=== PATIENT | female | born 1940 | race Caucasian/White ===

== ENCOUNTER 2017-09-01 08:43 | Outpatient (CLI) | payer MEDICARE, MEDICAID ==
--- NOTE | 2017-09-01 12:34 | CT ---
POST CONTRAST SOFT TISSUE NECK CT: HISTORY: Throat spasm, intermittent. Pain. COMPARISON: None. TECHNIQUE: A post contrast soft tissue neck CT is performed in the axial plane. Reformatted images are submitt ed for interpretation. FINDINGS: The visualized brain parenchyma is unremarkable. A partially empty sella is noted. There is adequa te aeration of the visualized sinuses and mastoid air cells. The aerodigestive tract is patent. No mucosal abnormality. Midline fatty raphe of the tongue is pr eserved. The epiglottis has a normal caliber. No prevertebral soft tissue swelling. Symmetric attenuation of the sternocleidomastoid muscle. Symmetric attenuation of the parotid gland s and submandibular gland. There is no evidence of lymphadenopathy by size criteria. The upper mediastinum and the lung apices are unremarkable. Cervical spine vertebral body height is maintained. No fracture. There are varying degrees of cent ral canal stenosis and foraminal narrowing on the basis of degenerative change. Atherosclerosis involving both carotid bifurcations and the proximal internal carotid arteries. No high grade stenosis. Evaluation is limited by technique. IMPRESSION: No acute abnormality in the soft tissues of the neck. No masses or lymphadenopathy. POS: [facility]
[2017-09-01] MEDS ORDERED: Iopamidol 370 76% 100 ML VIAL ONE (13:28)
== END 2017-09-01 08:44 | disposition home or self-care (01) ==
LOC: CT 08:43
PROVIDERS: ATTEND Internal Medicine
DX: M54.2 Cervicalgia (principal)
CPT/HCPCS: 70491

== ENCOUNTER 2017-12-08 10:14 | Outpatient (CLI) | payer MEDICARE, MEDICAID ==
--- NOTE | 2017-12-08 12:26 | RAD ---
SMALL BOWEL STUDY: HISTORY: Epigastric pain. COMPARISON: None. FINDINGS: Initial supervisor tunnel heading abdomen radiograph demonstrates a nonspecific bowel gas pattern. Phleboliths in the pe lvis are noted. The patient was administered thin barium, which passes rather quickly through the small bowel and opa cifies the colon as early as 15 minutes. Multiple normal caliber small bowel loops are noted. Grade d spot compression images demonstrate appropriate small bowel loop separation. The ileocecal junctio n is unremarkable. The opacified right hemicolon is also grossly unremarkable. The 30 minutes images demonstrate contrast now opacifying the splenic flexure. IMPRESSION: Rapid transit of contrast through normal caliber small bowel loops. No obvious mucosal abnormality. POS: [facility]
== END 2017-12-08 10:15 | disposition home or self-care (01) ==
LOC: RAD 10:14
PROVIDERS: ATTEND Internal Medicine
DX: R10.13 Epigastric pain (principal)
CPT/HCPCS: 74250

== ENCOUNTER 2018-04-13 08:05 | Outpatient (CLI) | payer MEDICARE, MEDICAID ==
--- NOTE | 2018-04-13 11:08 | CT ---
CT ABDOMEN AND PELVIS WITH IV CONTRAST: TECHNIQUE: Multiple axial tomograms were obtained through the abdomen and pelvis with IV enhancement. Oral cont rast was given. INDICATION: Generalized abdominal pain. COMPARISON: Comparison is made to CT abdomen and pelvis 05/23/17. Lung bases clear. The liver, spleen, and pancreas are unremarkable. Adrenal glands and kidneys unremarkable. No hydro nephrosis or urinary tract calculus identified. Urinary bladder unremarkable. Small bowel loops appear normal caliber. There is contrast throughout the colon. Diverticulosis of the left colon and sigmoid. The appendix is not identified. Aorta is calcified but normal caliber. No adenopathy seen. The patient appears to be post hysterectomy. Osseous structures unremarkable. IMPRESSION: No evidence of acute process. POS: [facility]
--- NOTE | 2018-04-13 12:06 | RAD ---
BARIUM SWALLOW ESOPHAGRAM: HISTORY: Dysphagia. Difficulty swallowing. Symptoms occur in the thoracic and cervical esophagus. COMPARISON: None. EXPOSURE: 1.9 minutes. 8.205 uGy*^cm2. FINDINGS: ONE VIEW CHEST: Normal cardiac silhouette. Pulmonary vessels and hilum are normal. Costophrenic angles are clear. No consolidation or mass. No pneumothorax or osseous abnormalities. The cervical and thoracic esophagus have an overall normal course and caliber. There is mass effect upon the posterior cervical esophagus at the C5 level due to prominent cricopharyngeus. There is als o a right lateral esophageal diverticulum at approximately the C2-C3 level. There is evidence of a small hiatal hernia. No reflux during intermittent fluoroscopy. The visualiz ed thoracic esophageal mucosa has a normal appearance. The patient was administered a 13 mm table which passed without difficulty. IMPRESSION: 1. Prominent cricopharyngeus. 2. Right lateral esophageal diverticulum at the level of C2-C3 vertebral bodies. 3. Small hiatal hernia without evidence of reflux during intermittent fluoroscopy. POS: [facility]
[2018-04-13] MEDS ORDERED: Iopamidol 370 76% 100 ML VIAL ONE (13:33)
== END 2018-04-13 08:06 | disposition home or self-care (01) ==
LOC: CT 08:05
PROVIDERS: ATTEND Internal Medicine
DX: K44.9 Diaphragmatic hernia without obstruction or gangrene (principal); K51.80 Other ulcerative colitis without complications; Q39.6 Congenital diverticulum of esophagus
CPT/HCPCS: 74177; 74220; 82565

== ENCOUNTER 2018-08-10 07:21 | Outpatient (CLI) | payer MEDICARE, MEDICAID ==
--- NOTE | 2018-08-10 11:05 | NM ---
HEPATOBILIARY SCAN: Date: 08/10/18 HISTORY: Nausea and vomiting, unspecified. RADIOPHARMACEUTICAL: 5.4 mCi technetium-99m mebrofenin injected intravenously. FINDINGS: There is good tracer extraction by the liver with prompt excretion of the biliary tract and small bow el loops. There is no filling of the gallbladder at 1 hour. 2 mg of IV morphine were injected and add itional imaging for 30 minutes was performed. No filling of the gallbladder is seen on the morphine-a ugmented imaging. IMPRESSION: Findings are indicative of cystic duct obstruction and suspicious for acute cholecystitis. Discussed over the telephone with Dr. Michael Wilcox at 1057 hours. CODE CR. POS: [facility]
== END 2018-08-10 07:22 | disposition home or self-care (01) ==
LOC: NM 07:21
PROVIDERS: ATTEND Internal Medicine
DX: R11.2 Nausea with vomiting, unspecified (principal); R14.0 Abdominal distension (gaseous)
CPT/HCPCS: 78227; A9537; J2270

== ENCOUNTER 2018-08-18 15:10 | Outpatient (CLI) | payer MEDICARE, MEDICAID ==
--- NOTE | 2018-08-18 17:24 | BD ---
BONE DENSITOMETRY USING DEXA: Date: 08/18/18 HISTORY: Postmenopausal screening for osteoporosis. FINDINGS: Lumbar Spine: BMD (g/cm2) L1 1.184 T-Score: 1.8 Z-Score: 4.1 L2 1.260 T-Score: 2.1 Z-Score: 4.7 L3 1.317 T-Score: 2.1 Z-Score: 4.8 L4 1.223 T-Score: 1.5 Z-Score: 4.3 L1-L4 1.249 T-Score: 1.8 Z-Score: 4.4 Femoral Neck: 0.804 T-Score: -0.4 Z-Score: 1.8 Total Femur: 0.926 T-Score: -0.1 Z-Score: 1.9 The 10 year fracture risk for a major osteoporotic fracture is 14% and for a hip fracture is 5.5%. IMPRESSION: No evidence of osteopenia/osteoporosis. POS: [facility]
== END 2018-08-18 15:11 | disposition home or self-care (01) ==
LOC: BICMAMMO 15:10
PROVIDERS: ATTEND Internal Medicine
DX: Z12.31 Encounter for screening mammogram for malignant neoplasm of breast (principal); Z78.0 Asymptomatic menopausal state
CPT/HCPCS: 77063; 77067; 77080

== ENCOUNTER 2018-08-26 11:43 | Outpatient (CLI) | payer MEDICARE, MEDICAID ==
--- NOTE | 2018-08-26 14:54 | ULT ---
ABDOMINAL ULTRASOUND WITH LIMITED BLADDER ULTRASOUND: HISTORY: Renal insufficiency and abdominal pain. COMPARISON: None. TECHNIQUE: Multiplanar barber-scale and color Doppler images were obtained in a complete abdominal ultrasound. Im ages were also taken of the urinary bladder. FINDINGS: The liver demonstrates increased echogenicity without focal lesions or intrahepatic ductal dilatation . There is echogenicity material in the gallbladder. The majority of this material does not demonst rate shadowing, but there is an area of shadowing, suggesting a gallstone is present within sludge. There is no gallbladder wall thickening or pericholecystic fluid. The common bile duct is at the upp er limits of normal, measuring 7 mm. The aorta and inferior vena cava are normal in caliber. The visualized portions of the pancreas are unremarkable. The spleen is normal in echogenicity without focal lesions and measures 9 cm in length . The right kidney is normal in echogenicity without hydronephrosis or calculus and measures 9.5 cm in length. There is a 6 mm echogenic focus in the left kidney, which could represent a nonobstructing ca lcification. No hydronephrosis is seen on the left, and the left kidney measures 10.2 cm in length. Limited visualization of the urinary bladder shows no focal bladder abnormality. Bladder volume is 1 04 mL. IMPRESSION: 1. Fatty liver. 2. Gallbladder sludge and likely gallstone. 3. Possible nonobstructing left renal calcification. POS: [facility]
== END 2018-08-26 11:44 | disposition home or self-care (01) ==
LOC: BICULT 11:43
PROVIDERS: ATTEND Surgery
DX: N28.9 Disorder of kidney and ureter, unspecified (principal); R10.9 Unspecified abdominal pain; K76.0 Fatty (change of) liver, not elsewhere classified; K82.8 Other specified diseases of gallbladder
CPT/HCPCS: 76700; 76856

== ENCOUNTER 2018-10-12 06:26 | Day surgery (SDC) | payer MEDICARE, MEDICAID ==
[2018-10-11 14:21] VITALS: BMI 23.0
[2018-10-12] MEDS ORDERED: Bupivacaine/Epinephrine 0.25% 30 ML VIAL ONE (06:32)
[2018-10-12] MEDS ORDERED: Iothalamate Meglumine 60% 50 ML VIAL FS ONE (06:36)
[2018-10-12] MEDS ORDERED: EPINEPHrine 1 MG/ML AMP ONE (06:36)
[2018-10-12] MEDS ORDERED: Famotidine/PF 20 mg/2ml Vial ONE (07:05)
[2018-10-12] MEDS ORDERED: Fentanyl 100 MCG/2 ML VIAL ONE (07:05)
[2018-10-12] MEDS ORDERED: CEFAZOLIN 2 GM/50 ML BAG ONE (07:13)
[2018-10-12 07:17] LABS: #Eosinphils 0.5 thou/uL (0.0-0.7); #Lymphocytes 3.2 thou/uL (1.20-3.40); #Monocytes 0.7 thou/uL (0.11-0.59); #Neutrophils 2.9 thou/uL (1.40-6.50); %Basophils 0.6 % (0.0-1.0); %Eosinophils 7.1 % (0.0-10.0); %Lymphocytes 43.4 % (21.0-51.0); %Monocytes 9.2 % (0.0-10.0); %Neutrophils 39.7 % (42.0-75.0); Hemoglobin 12.8 g/dL (12.0-16.0); Mean Corpuscular HGB CONC 35.2 g/dL (32.0-36.0); Mean Corpuscular Hemoglobin 33.3 pg (27.0-31.0); Mean Corpuscular Volume 94.7 fL (78.0-98.0); Mean Platelet Volume 6.5 fL (7.4-10.4); Platelet Count 257 thou/uL (130-400); RBC Distribution Width 12.4 % (11.5-14.5); Red Blood Cell (RBC) Count 3.85 mill/uL (4.20-5.40); White Blood Cell (WBC) Count 7.4 thou/uL (4.8-10.8)
[2018-10-12 07:31] LABS: ALT (SGPT) 29 U/L (8-55); AST (SGOT) 24 U/L (5-34); Albumin 4.2 g/dL (3.4-4.8); Alkaline Phosphatase 106 U/L (40-150); Anion Gap 12 mmol/L (10-20); BUN (Urea Nitrogen) 15 mg/dL (9.8-20.1); Bilirubin, Total 0.5 mg/dL (0.2-1.2); Calc. Creatinine Clearance 54 mL/min (70-130); Calcium 9.2 mg/dL (7.8-10.44); Carbon Dioxide 28 mmol/L (23-31); Chloride 101 mmol/L (98-107); Estimated GFR-MDRD 66; Globulin 3.1 g/dL (2.4-3.5); Glucose 120 mg/dL (83-110); Potassium 3.6 mmol/L (3.5-5.1); Protein, Total 7.3 g/dL (6.0-8.3); Sodium 137 mmol/L (136-145)
[2018-10-12] MEDS ORDERED: Ketorolac Tromethamine 30 MG/ML VIAL ONE (09:37)
[2018-10-12] MEDS ORDERED: Dexamethasone 20 MG/5 ML VIAL ONE (09:37)
[2018-10-12] MEDS ORDERED: Ondansetron PF 4 MG/2 ML Vial ONE (09:37)
[2018-10-12] MEDS ORDERED: Glycopyrrolate 0.2 MG/ML 5 ML SYRINGE ONE (09:37)
[2018-10-12] MEDS ORDERED: ePHEDrine/0.9% NaCl/PF SYRINGE 50 mg/10 ml ONE (09:37)
[2018-10-12] MEDS ORDERED: PROPOFOL 200 MG/20 ML VIAL ONE (09:37)
[2018-10-12] MEDS ORDERED: Lidocaine 1% PF 5 ML VIAL ONE (09:37)
--- NOTE | 2018-10-12 09:46 | RAD ---
OPERATIVE CHOLANGIOGRAM: History: Intraoperative film. FINDINGS: Two C-arm films were preserved for interpretation. These show filling of the common bile duct without evidence of any filling defects. There is emptying into the duodenum. IMPRESSION: Unremarkable operative cholangiogram. POS: [facility]
[2018-10-12] MEDS ORDERED: diphenhydrAMINE 50 MG/ML VIAL ONE (11:47)
[2018-10-12] MEDS ORDERED: traMADol HCl 50 MG TAB ONE (12:07)
--- NOTE | 2018-10-12 20:09 | EKG ---
Test Reason : PREOP Blood Pressure : / mmHG Vent. Rate : 063 BPM Atrial Rate : 063 BPM P-R Int : 148 ms QRS Dur : 080 ms QT Int : 444 ms P-R-T Axes : 059 013 056 degrees QTc Int : 454 ms Normal sinus rhythm Normal ECG No previous ECGs available Confirmed by DR. Sav JONES MD ([id number]) on 10/12/2018 8:08:53 PM Referred By: DOLLY Confirmed By:DR. Sav JONES MD
--- NOTE | 2018-10-14 08:09 | OP ---
DATE OF PROCEDURE: 10/12/2018 PREOPERATIVE DIAGNOSES: 1. Dysphagia. 2. Zenker diverticulum. POSTOPERATIVE DIAGNOSIS: Dysphagia. ESTIMATED BLOOD LOSS: None. COMPLICATIONS: None. ANESTHESIA: GETA. PROCEDURES PERFORMED: 1. Direct laryngoscopy. 2. Rigid esophagoscopy. DESCRIPTION OF PROCEDURE: The patient was taken to the operating room, placed supine on the table. General endotracheal anesthesia was obtained by the Anesthesia staff. Tube was secured in the left lower lip. The head of the bed was turned 90 degrees, shoulder roll was placed. Following this, using the Dedo laryngoscope, the mucosa of the upper airway was examined. The oropharyngeal mucosa and hypopharyngeal mucosa were noted to be within normal limits. Bilateral vocal cords were intact. Pyriform sinuses all within normal limits. Following this, laryngoscope was then introduced into the posterior cricoid area and was expanded. There was no significant pharyngeal muscle bar noted in the posterior or lateral areas. Following this, a rigid endoscopy was performed showing no evidence of a pharyngeal or esophageal bar. There was noted to be excessive amounts of redundant tissue in the upper esophageal inlet; however, no true diverticulum deformity was noted after many attempts. Following this, the patient was turned over to Dr. Victor for further treatment. Job ID: [id number]
--- NOTE | 2018-10-15 21:21 | PDOC.OP ---
Operative Note - Operative Note Operative Note: PROCEDURE: Laparoscopic cholecystectomy with intraoperative cholangiogram SURGEON: Jeff Victor M.D. DATE OF PROCEDURE: PREOPERATIVE DIAGNOSIS: Cholelithiasis and cholecystitis, possible choledocholithiasis: POSTOPERATIVE DIAGNOSIS: Cholelithiasis and cholecystitis, with stone impacted in the cystic duct. HISTORY: Patient with intermittent abdominal pain nausea and diarrhea and nonfilling of the gallbladder on HIDA scan. Laparoscopic cholecystectomy with cholangiogram was recommended. FINDINGS: Chronically contracted white walled gallbladder with stone impacted in cystic duct. Normal intraoperative cholangiogram PROCEDURE IN DETAIL: After informed consent was obtained and appropriate preoperative antibiotics were administered, the patient was taken to the operating room and placed in the supine position and general endotracheal anesthesia was administered. The stomach was decompressed with an OG tube and the abdomen was prepped and draped in standard sterile fashion. Local anesthesia was infused to the skin and subcutaneous tissues at the umbilical level. A transverse skin incision was made. The fascia was elevated and a Veress needle was placed into the abdominal cavity without difficulty. Opening pressure was less than 5 and carbon dioxide gas easily insufflated to an intra- abdominal pressure of 15, which the patient tolerated well. The Veress needle was withdrawn and a [place] port advanced under direct vision. The abdominal cavity was carefully examined. There was no evidence of Veress needle or of trocar injury. Local anesthesia was infused to the skin and subcutaneous tissues at the epigastric, right upper quadrant, and right lateral abdominal sites and trocars were placed under direct vision of the laparoscope. The fundus of the gallbladder was grasped and retracted superiorly, with immediate rupture of the gallbladder wall had very little tensile strength. A small amount of clear colorless bile was spilled and suctioned out.. The infundibulum was grasped and retracted laterally. The serosa was stripped inferiorly at the level of the neck of the gallbladder exposing the cystic duct and artery which were traced clearly to their insertion in the gallbladder. These were dissected free circumferentially and the cystic duct was clipped at the level of the neck of the gallbladder. The cystic artery was clipped but not divided. An incision was made in the cystic duct inferior to the clip and the cystic duct was palpated with a stone palpable. This was crushed and milked upward and extruded through the incision in the cystic duct. Clear bile was then seen to flow from the cystic duct incision. A cholangiogram catheter was introduced and placed into the cystic duct and secured with a clip. A cholangiogram was obtained which showed an adequate length of cystic duct. There was normal filling of the common bile duct with free flow of contrast into the duodenum. There was normal retrograde flow into the common hepatic duct beyond the level of the bifurcation without filling defects. The cholangiogram catheter was removed and the cystic duct clipped below the incision in the cystic duct. The cystic duct was divided between these clips and the previously placed clip. The cystic artery was clipped and divided between the previously placed clips. The gallbladder was then dissected free of the gallbladder bed using hook electrocautery. Due to the poor tensile strength of the gallbladder, the gallbladder tore into a couple pieces during dissection just from traction. Prior to complete removal of the gallbladder from the gallbladder bed, the area of the cystic duct and artery stumps was examined. The clips were in good position completely across these structures and there was no bleeding and no leakage of bile. The gallbladder was then placed into an EndoCatch bag and drawn out through the epigastric incision. The epigastric trocar was replaced and the operative site easily irrigated to clear. There was no significant bleeding or spillage of bile. The epigastric trocar was removed and the fascia closed under direct laparoscopic vision with a 0 Vicryl suture on a GraNee needle in a [id number] manner with excellent technical result. The right upper quadrant and right lateral abdominal trocars were removed and hemostasis verified. Carbon dioxide gas was allowed to desufflate through the umbilical trocar which was then removed. The skin incisions were closed with 4-0 subcuticular Monocryl sutures and Dermabond dressings were placed. The patient was extubated and taken to the recovery room in good condition. There were no complications. ESTIMATED BLOOD LOSS: Minimal. SPECIMEN : Gallbladder and contents.
== END 2018-10-12 14:15 | disposition home or self-care (01) ==
LOC: SDC 06:26
PROVIDERS: ATTEND Otolaryngology Plastic Surgery within the Head & Neck
PROC: 0DJ08ZZ Inspection of Upper Intestinal Tract, Via Natural or Artificial Opening Endoscopic (ICD-10-PCS; principal; 2018-10-12)
PROC: 0CJS8ZZ Inspection of Larynx, Via Natural or Artificial Opening Endoscopic (ICD-10-PCS; 2018-10-12)
PROC: 0FT44ZZ Resection of Gallbladder, Percutaneous Endoscopic Approach (ICD-10-PCS; 2018-10-12)
PROC: BF131ZZ Fluoroscopy of Gallbladder and Bile Ducts using Low Osmolar Contrast (ICD-10-PCS; 2018-10-12)
DX: K80.10 Calculus of gallbladder with chronic cholecystitis without obstruction (principal); K82.8 Other specified diseases of gallbladder; R13.10 Dysphagia, unspecified; E78.5 Hyperlipidemia, unspecified; K44.9 Diaphragmatic hernia without obstruction or gangrene; K22.4 Dyskinesia of esophagus; M19.90 Unspecified osteoarthritis, unspecified site; J30.2 Other seasonal allergic rhinitis; K21.9 Gastro-esophageal reflux disease without esophagitis; Z79.899 Other long term (current) drug therapy; Z88.6 Allergy status to analgesic agent; Z88.1 Allergy status to other antibiotic agents
CPT/HCPCS: 31525; 43191; 47532; 47563; 80053; 85025; 88304; 93005; J1610; 36415; 93010; J0131; J0171; J1100; J1200; J1885; J2001; J2405; J2704; J3010; Q9961; S0028

== ENCOUNTER 2018-12-23 12:21 | Outpatient (CLI) | payer MEDICARE, MEDICAID ==
[2018-12-23] MEDS ORDERED: Iopamidol 370 76% 100 ML VIAL ONE (12:34)
--- NOTE | 2018-12-23 14:33 | CT ---
CT OF ABDOMEN AND PELVIS PERFORMED WITH CONTRAST ENHANCEMENT: Date: 12/23/18 HISTORY: Lower abdominal pain with vomiting. Irregular bowel movements. History of ulcerative colitis. History of cholecystectomy, appendectomy, and hysterectomy. COMPARISON: 04/13/18 CT examination. FINDINGS: The lung bases show some bibasilar atelectatic change. The liver has a suggestion of some fatty change. It measures approximately 18.0 cm in length. The spl een is within normal limits. Pancreas region is unremarkable and the gallbladder has been removed. Right and left adrenal glands, and right and left kidneys are normal in size. No obstruction. Some sl ightly prominent veins are seen coursing along the course of the left ureter. This is unchanged in ap pearance. There is no significant periaortic or mesenteric lymphadenopathy. I do not appreciate any a reas of bowel wall thickening. CT of pelvis was performed with contrast enhancement. Sigmoid diverticulosis is seen. No adenopathy, mass, or free fluid. IMPRESSION: 1. No acute abnormalities of the abdomen or pelvis. 2. Suggestion of some fatty change of the liver. 3. Sigmoid diverticulosis. POS: [facility]
== END 2018-12-23 12:22 | disposition home or self-care (01) ==
LOC: BICCT 12:21
PROVIDERS: ATTEND Physician Assistant Medical
DX: K51.90 Ulcerative colitis, unspecified, without complications (principal); R11.2 Nausea with vomiting, unspecified; R19.4 Change in bowel habit; R10.30 Lower abdominal pain, unspecified; K57.30 Diverticulosis of large intestine without perforation or abscess without bleeding
CPT/HCPCS: 74177; 82565; Q9967

== ENCOUNTER 2019-07-05 07:21 | Outpatient (CLI) | payer MEDICARE, MEDICAID ==
--- NOTE | 2019-07-05 13:20 | NM ---
Nuclear medicine gastric emptying scan: DATE: 07/05/2019 HISTORY: 78-year-old female with nausea with vomiting. Patient initially stated that she took her antinausea medication this morning. When asked about the s pecific type, she stated that she does not know, and later changed her statement, stating that she did not take antinausea medication. TECHNIQUE: 2.1 mCi technetium 99m-sulfur colloid served in scrambled egg meal. Anterior scintigraphy of abdomen obtained immediately, and at 30 minutes, 1 hour, 2 hour, 3 hour, and 4 hour. Counts obtained over stomach, and used to generate time-activity curve. FINDINGS: Percentage emptying is as follows: Immediately: 0% 30 minutes: 15% 60 minutes: 32% 2 hours: 66% 3 hours: 85% 4 hours: 99% Half-time of emptyin minutes IMPRESSION: 1. Percentage emptying values are within normal limits. 2. However, there is some uncertainty and without regarding whether the patient took her antiematic m edication the morning of this study or not. Depending on the type of medication, it could increase the gastric emptying time, thereby invalidating the study. Please discuss this with the patient and e xplain the defect of the medication on this study.
== END 2019-07-05 07:22 | disposition home or self-care (01) ==
LOC: NM 07:21
PROVIDERS: ATTEND Physician Assistant Medical
DX: R19.4 Change in bowel habit (principal); R10.30 Lower abdominal pain, unspecified; R11.2 Nausea with vomiting, unspecified
CPT/HCPCS: 78264; A9541

== ENCOUNTER 2019-07-17 13:05 | Emergency (ER) | payer MEDICARE, MEDICAID ==
[2019-07-17 13:30] LABS: #Lymphocytes 1.6 thou/uL (1.20-3.40); #Monocytes 0.8 thou/uL (0.11-0.59); #Neutrophils 8.7 thou/uL (1.40-6.50); %Basophils 0.1 % (0.0-1.0); %Eosinophils 0.3 % (0.0-10.0); %Lymphocytes 14.2 % (21.0-51.0); %Monocytes 7.2 % (0.0-10.0); %Neutrophils 78.1 % (42.0-75.0); Hemoglobin 14.2 g/dL (12.0-16.0); Mean Corpuscular HGB CONC 34.4 g/dL (32.0-36.0); Mean Corpuscular Volume 95.9 fL (78.0-98.0); Mean Platelet Volume 6.8 fL (7.4-10.4); Platelet Count 240 thou/uL (130-400); Red Blood Cell (RBC) Count 4.29 mill/uL (4.20-5.40); White Blood Cell (WBC) Count 11.1 thou/uL (4.8-10.8)
[2019-07-17 13:51] LABS: ALT (SGPT) 47 U/L (8-55); AST (SGOT) 28 U/L (5-34); Albumin 4.6 g/dL (3.4-4.8); Alkaline Phosphatase 116 U/L (40-150); Anion Gap 13 mmol/L (10-20); BUN (Urea Nitrogen) 9 mg/dL (9.8-20.1); Bilirubin, Total 0.8 mg/dL (0.2-1.2); Calc. Creatinine Clearance 0 mL/min (70-130); Calcium 9.6 mg/dL (7.8-10.44); Carbon Dioxide 26 mmol/L (23-31); Chloride 96 mmol/L (98-107); Estimated GFR-MDRD 65; Globulin 3.1 g/dL (2.4-3.5); Glucose 156 mg/dL (83-110); Lipase 13 U/L (8-78); Potassium 3.3 mmol/L (3.5-5.1); Protein, Total 7.7 g/dL (6.0-8.3); Sodium 132 mmol/L (136-145)
[2019-07-17] MEDS ORDERED: Dexamethasone 10 MG/ML VIAL ONE (14:45)
[2019-07-17] MEDS ORDERED: Ketorolac Tromethamine 30 MG/ML VIAL ONE (14:45)
--- NOTE | 2019-07-17 14:54 | CT ---
CT OF THE LUMBAR SPINE: DATE: 07/17/2019. COMPARISON: None. HISTORY: Pain. TECHNIQUE: Axial CT imaging at 2.5 mm intervals through the lumbar spine without contrast. Coronal and sagittal reformatted imaging obtained. FINDINGS: Evaluation for central canal and/or neural foraminal stenosis is limited on routine CT. Imaged lung parenchyma is hypodense, evidence of steatosis. Cholecystectomy clips are noted. Punctate nonobstru cting stone noted in the upper pole of left kidney. There is multifocal atherosclerotic calcification of the abdominal aorta and its branches. There is minimal anterolisthesis at L3-4 measuring approximately 4 mm and at L4-5 measuring approxima tely 3 mm. No acute fracture or evidence of dislocation is seen. T12-L1: There is no osseous cause of significant central canal or neural foraminal stenosis. L1-2: There is significant facet hypertrophy on the left. There is no osseous cause of significant central canal or neural foraminal stenosis. L2-3: There is significant bilateral facet hypertrophy and hypertrophy of the ligamentum flavum, rig ht greater than left. No osseous cause of significant central canal or neural foraminal stenosis. P robable disk bulge with at least mild central canal stenosis. L3-4: Prominent bilateral facet hypertrophy and hypertrophy of the ligamentum flavum with probable d isk bulge causing at least mild/moderate common carotid artery and probable at least mild bilateral n eural foraminal stenosis. L4-5: Mild disk bulge with at least mild central canal stenosis. Significant bilateral facet hypert rophy with probable mild bilateral neural foraminal stenosis. L5-S1: Bilateral facet hypertrophy, most prominent on the right. No osseous cause of significant ce ntral canal or neural foraminal stenosis. IMPRESSION: 1. No acute fracture or dislocation. Degenerative changes noted within the lumbar spine as detailed above. If there are radicular symptoms, MRI is suggested to evaluate for underlying central canal a nd/or neural foraminal stenosis. 2. Additional incidental findings as detailed above. POS: [facility]
[2019-07-17 15:01] LABS: Bilirubin Negative (Negative); Blood, Urine Negative (Negative); Clarity Clear (Clear); Glucose, Urine (Dipstick) Normal (Negative); Leukocyte 25 Leu/uL (Negative); Nitrite Negative (Negative); Protein, Urine (Dipstick) Negative (Neg-Trace); RBC/HPF 0-3 HPF (0-3); Squamous Epithelial 0-3 HPF (0-3); WBC/HPF 0-3 HPF (0-3)
[2019-07-17 15:02] LABS: Bacteria/HPF 1+ HPF (None Seen)
== END 2019-07-17 15:08 | disposition home or self-care (01) ==
LOC: ERS 13:05
DX: M54.5 Low back pain (principal); K21.9 Gastro-esophageal reflux disease without esophagitis; Z79.899 Other long term (current) drug therapy
CPT/HCPCS: 36415; 72131; 80053; 81003; 81015; 83690; 85025; 96372; J1100; J1885

== ENCOUNTER 2020-06-10 13:14 | Outpatient (CLI) | payer MEDICARE, MEDICAID ==
--- NOTE | 2020-06-10 13:45 | RAD ---
EXAM: 5 views of the cervical spine HISTORY: Neck pain COMPARISON: None FINDINGS: AP, lateral, oblique, and open mouth odontoid views of the cervical spine shows normal heig ht and alignment of the vertebral bodies without fracture or subluxation. Mild intervertebral disc space narrowing and osteophyte formation is seen at C5/6. No prevertebral soft tissue swelling is see n. Alignment is unchanged with flexion and extension. IMPRESSION: Degenerative changes in the mid cervical spine without acute osseous abnormality.
== END 2020-06-10 13:15 | disposition home or self-care (01) ==
LOC: BICRAD 13:14
PROVIDERS: ATTEND Physician Assistant
DX: M54.2 Cervicalgia (principal); M47.812 Spondylosis without myelopathy or radiculopathy, cervical region
CPT/HCPCS: 72050

== ENCOUNTER 2020-07-16 16:18 | Outpatient (CLI) | payer MEDICARE, MEDICAID ==
--- NOTE | 2020-07-16 16:47 | RAD ---
RIGHT HIP: 07/16/20 Two views. HISTORY: Hip pain. Femoral head contour is normal. No fracture identified. No significant degenerative change. IMPRESSION: Unremarkable right hip. POS: [facility]
--- NOTE | 2020-07-16 16:49 | RAD ---
Right hand 3 views HISTORY: Right hand pain. FINDINGS: At the first carpometacarpal joint, there is complete loss of joint space and moderate oste ophytosis and subchondral sclerosis. Deformity of the articular surfaces and moderate lateral subluxation. Partial collapse of the articular surface of the trapezium. Mild to moderate joint space narrowing, osteophytosis, and subchondral sclerosis involves the interph alangeal joints. Most notably the thumb. Occasional, very small osteophyte fragment adjacent to the joints. No acute fracture, dislocation, or aggressive osseous erosions. IMPRESSION : Osteoarthritis, including severe changes at the first carpometacarpal joint.
== END 2020-07-16 16:19 | disposition home or self-care (01) ==
LOC: BICRAD 16:18
PROVIDERS: ATTEND Internal Medicine
DX: M25.551 Pain in right hip (principal); M79.641 Pain in right hand; M18.11 Unilateral primary osteoarthritis of first carpometacarpal joint, right hand

== ENCOUNTER 2021-10-03 14:15 | Outpatient (CLI) | payer MEDICARE, MEDICAID | END 2021-10-03 14:16 | disposition home or self-care (01) | LOC: BICMAMMO 14:15 | PROVIDERS: ATTEND Internal Medicine | DX: Z13.820 Encounter for screening for osteoporosis (principal); N63.0 Unspecified lump in unspecified breast; Z78.0 Asymptomatic menopausal state | CPT/HCPCS: 76642; 77066; 77080; G0279 ==

== ENCOUNTER 2022-08-07 14:06 | Outpatient (CLI) | payer MEDICARE, MEDICAID | END 2022-08-07 14:07 | disposition home or self-care (01) | LOC: BICMAMMO 14:06 | PROVIDERS: ATTEND Internal Medicine | DX: N63.21 Unspecified lump in the left breast, upper outer quadrant (principal); N63.11 Unspecified lump in the right breast, upper outer quadrant; N64.4 Mastodynia; R92.2 Inconclusive mammogram | CPT/HCPCS: 76642 ×2; 77066; G0279 ==

== ENCOUNTER 2023-10-27 14:45 | Outpatient (CLI) | payer MEDICARE, MEDICAID | END 2023-10-27 14:46 | disposition home or self-care (01) | LOC: BICMAMMO 14:45 | PROVIDERS: ATTEND Internal Medicine | DX: Z12.31 Encounter for screening mammogram for malignant neoplasm of breast (principal) | CPT/HCPCS: 77063; 77067 ==

== ENCOUNTER 2024-01-21 14:16 | Outpatient (CLI) | payer MEDICARE, MEDICAID | END 2024-01-21 14:17 | disposition home or self-care (01) | LOC: BICMRI 14:16 | PROVIDERS: ATTEND Internal Medicine | DX: R25.1 Tremor, unspecified (principal); M25.551 Pain in right hip; M25.552 Pain in left hip; M54.50 Low back pain, unspecified; M47.816 Spondylosis without myelopathy or radiculopathy, lumbar region; I67.89 Other cerebrovascular disease | CPT/HCPCS: 70551; 72100 ==

== ENCOUNTER 2024-08-03 12:38 | Outpatient (CLI) | payer MEDICARE, MEDICAID | END 2024-08-03 12:39 | disposition home or self-care (01) | LOC: CT 12:38 | PROVIDERS: ATTEND Neurological Surgery | DX: I69.114 Frontal lobe and executive function deficit following nontraumatic intracerebral hemorrhage (principal) | CPT/HCPCS: 70450 ==

== ENCOUNTER 2024-10-24 13:08 | Outpatient (CLI) | payer MEDICARE, MEDICAID | END 2024-10-24 13:09 | disposition home or self-care (01) | LOC: BICCT 13:08 | PROVIDERS: ATTEND Neurological Surgery | DX: I61.9 Nontraumatic intracerebral hemorrhage, unspecified (principal); I67.82 Cerebral ischemia; G93.89 Other specified disorders of brain | CPT/HCPCS: 70450 ==

== ENCOUNTER 2025-10-05 14:26 | Emergency (ER) | payer MEDICAID, MEDICARE, SELFPAY | END 2025-10-05 16:35 | disposition home or self-care (01) | LOC: ERS 14:26 | DX: Z03.821 Encounter for observation for suspected ingested foreign body ruled out (principal); Z79.899 Other long term (current) drug therapy | CPT/HCPCS: 70360; 71046 ==